=== PATIENT | male | born 1955 | race Caucasian/White ===

== ENCOUNTER 2019-10-21 12:32 | Inpatient (IN) | payer OTHER, MEDICARE ==
[~2019-10-21] VITALS: Ht 188 cm; Wt 98.8 kg
[2019-10-21 13:43] LABS: BASOPHILS ABSOLUTE AUTO 0.05 K/mm3 (0.00-0.23); BASOPHILS PERCENT AUTO 1 % (0-2); EOSINOPHILS ABSOLUTE AUTO 0.18 K/mm3 (0.00-0.68); EOSINOPHILS PERCENT AUTO 2 % (0-6); Hemoglobin 14.9 g/dL (13.5-17.5); IMMATURE GRAN ABSOLUTE AUTO 0.02 K/mm3 (0.00-0.10); IMMATURE GRAN PERCENT AUTO 0 % (0-1); LYMPHOCYTES ABSOLUTE AUTO 2.31 K/mm3 (0.84-5.20); LYMPHOCYTES PERCENT AUTO 28 % (21-46); MONOCYTES ABSOLUTE AUTO 0.74 K/mm3 (0.16-1.47); MONOCYTES PERCENT AUTO 9 % (4-13); Mean Corpuscular HGB 29.8 pg (26.0-34.0); Mean Corpuscular HGB Conc 33.1 g/dL (31.5-36.5); Mean Corpuscular Volume 90 fL (80-100); Mean Platelet Volume 12.2 fL (9.1-12.4); NEUTROPHILS ABSOLUTE AUTO 4.93 K/mm3 (1.96-9.15); NEUTROPHILS PERCENT AUTO 60 % (41-73); Platelet Count 197 K/mm3 (150-400); RDW Coefficient Variation 12.4 % (11.7-14.2); RDW Standard Deviation 40.6 fL (35.1-46.3); White Blood Cell Count 8.23 K/mm3 (4.00-11.30)
[2019-10-21 13:58] LABS: Alanine Aminotransfer (ALT/SGP 43 U/L (12-78); Albumin/Globulin Ratio 1.4 (0.8-1.8); Alk Phos 59 U/L (50-136); Anion Gap 8 mmol/L (6-16); Aspartate Aminotrans (AST/SGOT 29 U/L (12-37); Bilirubin, Total 1.1 mg/dL (0.1-1.0); Blood Urea Nitrogen 23 mg/dL (8-24); Bun/Creatinine Ratio 21.9 (12.0-20.0); CO2, Blood 25 mmol/L (21-32); Calcium, Blood 8.8 mg/dL (8.5-10.1); Chloride, Blood 110 mmol/L (98-108); Creatinine, Blood 1.05 mg/dL (0.60-1.20); Globulin, Blood 2.9 g/dL (2.2-4.0); Glomerular Filtration Rate >60 (60-); Glucose, Blood 204 mg/dL (70-99); Magnesium, Blood 1.8 mg/dL (1.6-2.4); Potassium, Blood 4.1 mmol/L (3.5-5.5); Sodium, Blood 143 mmol/L (136-145); Total Protein, Blood 6.9 g/dL (6.4-8.2); Troponin I <0.015 ng/mL (0.000-0.040)
[2019-10-21] MEDS ORDERED: FUROSEMIDE20 MG PO (14:47)
[2019-10-21] MEDS ORDERED: GLIP5 PO (14:47)
[2019-10-21] MEDS ORDERED: Diltiazem ER120 M2 PO (14:48)
[2019-10-21] MEDS ORDERED: ZESTRIL40 M1 PO (14:48)
[2019-10-21] MEDS ORDERED: ATORVASTATIN CA PO (14:49)
[2019-10-21] MEDS ORDERED: METO50ER PO (14:49)
[2019-10-21] MEDS ORDERED: Metformin HCl1000 MG PO (14:50)
[2019-10-21] MEDS ORDERED: SPIRONOLACTONE25 MG PO (14:50)
[2019-10-21] MEDS ORDERED: XARELTO20 M1 PO (14:51)
[2019-10-21] MEDS ORDERED: BASAGLAR K100 UNIT/2 SC (14:52)
[2019-10-21 16:18] LABS: Prothrombin Time Results 10.7 Sec (9.7-11.5)
--- NOTE | 2019-10-21 18:38 | NUR ---
SHIFT NOTE PT HAS BEEN RESTING WELL IN BED W/O CP OR SOB T/O THE DAY. PT WITH NUMEROUS 3-7 SECOND PAUSES NOTED CONVERTING BETWEEN A-FLUTTER AND NSR. PT REMAINS A-SYMPTOMATIC DURING THERSE EPISODES. 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 PT STS THAT SHE USED TO WORK IN [employer] WHICH IS WHERE SHE DIAGNOSED HERSELF WITH SAID AILMENTS. PT REMAINS IN HEART CENTER AT THE TIME THIS NOTE WRITTEN
--- NOTE | 2019-10-21 22:46 | NUR ---
ASSUMED CARE OF PATIENT AT APPROXIMATELY 1915 FROM CHIQUITA Smiley RN. PATIENT ALERT AND ORIENTED X4. PATIENT DENIES PAIN, NUMBNESS, TINGLING, DIZZINESS OR NAUSEA. PATIENT NEW ADMIT BEFORE SHIFT CHANGE. PATIENT REQUESTED FOOD; TRAY DID NOT COME. AFIB ON TELE WITH A RATE OF 120'S; CARDIZEM GTT; HEPARIN GTT; OXYGEN SATURATION ABOVE 90% ON ROOM AIR; SCD'S PLACED. PATIENT URINATING INTO URINAL BEDSIDE. PATIENT CURRENTLY RESTING IN BED; CALL LIGHT IN REACH; BED IN LOWEST POSISTION; BED ALARM ON; WILL CONTINUE TO MONITOR AND ASSESS UNTIL END OF SHIFT.
--- NOTE | 2019-10-22 05:45 | NUR ---
CARDIZEM GTT WAS TITRATED DOWN TO 5ML/HR AROUND 0200; AFIB AVERAGING HIGH 90'S AND PATIENT HAD 3 SECOND PAUSE; ASYMPTOMATIC. VSS. DR. TOPETE CALLED; ORDERS TO START HOME DOSE OF PO CARDIZEM; CALLED PHARMACIST TO VERIFY. CARDIZEM GTT OFF AT 0400; AVERAGING 100'S ON TELE. HEPARIN ADJUSTED ONCE. WILL CONTINUE TO MONITOR AND ASSESS UNTIL END OF SHIFT.
[2019-10-22 07:56] LABS: BASOPHILS ABSOLUTE AUTO 0.06 K/mm3 (0.00-0.23); BASOPHILS PERCENT AUTO 1 % (0-2); EOSINOPHILS ABSOLUTE AUTO 0.28 K/mm3 (0.00-0.68); EOSINOPHILS PERCENT AUTO 4 % (0-6); Hematocrit 39.8 % (37.0-53.0); Hemoglobin 13.3 g/dL (13.5-17.5); IMMATURE GRAN ABSOLUTE AUTO 0.01 K/mm3 (0.00-0.10); IMMATURE GRAN PERCENT AUTO 0 % (0-1); LYMPHOCYTES ABSOLUTE AUTO 2.27 K/mm3 (0.84-5.20); LYMPHOCYTES PERCENT AUTO 33 % (21-46); MONOCYTES ABSOLUTE AUTO 0.75 K/mm3 (0.16-1.47); MONOCYTES PERCENT AUTO 11 % (4-13); Mean Corpuscular HGB 29.7 pg (26.0-34.0); Mean Corpuscular HGB Conc 33.4 g/dL (31.5-36.5); Mean Corpuscular Volume 89 fL (80-100); Mean Platelet Volume 11.3 fL (9.1-12.4); NEUTROPHILS ABSOLUTE AUTO 3.48 K/mm3 (1.96-9.15); NEUTROPHILS PERCENT AUTO 51 % (41-73); Platelet Count 146 K/mm3 (150-400); RDW Coefficient Variation 12.3 % (11.7-14.2); RDW Standard Deviation 40.1 fL (35.1-46.3); Red Blood Cell Count 4.48 M/mm3 (4.30-5.90); White Blood Cell Count 6.85 K/mm3 (4.00-11.30)
[2019-10-22 08:12] LABS: Anion Gap 6 mmol/L (6-16); Blood Urea Nitrogen 23 mg/dL (8-24); Bun/Creatinine Ratio 21.9 (12.0-20.0); CO2, Blood 25 mmol/L (21-32); Calcium, Blood 8.5 mg/dL (8.5-10.1); Chloride, Blood 112 mmol/L (98-108); Creatinine, Blood 1.05 mg/dL (0.60-1.20); Glomerular Filtration Rate >60 (60-); Glucose, Blood 194 mg/dL (70-99); Potassium, Blood 3.9 mmol/L (3.5-5.5); Sodium, Blood 143 mmol/L (136-145)
--- NOTE | 2019-10-22 18:41 | NUR ---
PT SUMMARY: PT RE-STARTED ON CARDIZEM DRIP CURRENTLY AT 15MG/HR PT'S HR STAYS ON 110-120S, PT DENIES CHEST PAIN. BP SYSTOLIC ON THE 115'S. NO HEADACHE/DIZZINESS/NAUSEA REPORTED. HEPARIN GTT STOPPED PT RESUMED ON XARELTO 20 MG. PT TO CONTINUE ON MEDICAL INTERVENTION FOR AFIB TO CONSULT CARDIOLOGY IF AFIB UNCONTROLLED WITH MEDICATION. PT INDEPENDENT IN THE ROOM, DENIES ANY PAIN FOR THE SHIFT, ABLE TO MAKE NEEDS KNOWN. WILL MONITOR
--- NOTE | 2019-10-22 20:57 | NUR ---
ASSUMED CARE OF PATIENT AT APPROXIMATELY 1910 FROM GUSTAVO Montes De Oca RN. PATIENT ALERT AND ORIENTED X4. PATIENT DENIES PAIN, NUMBNESS, TINGLING, DIZZINESS OR NAUSEA. PATIENT REQUESTED SHOWER AT SHIFT CHANGE; SHOWERED AND LINENS CHANGED. AFIB ON TELE WITH A RATE OF 105-120; CARDIZEM GTT TITRATED DOWN TO 10 W/ RATE AVERAGING 105; OXYGEN SATURATION ABOVE 90% ON ROOM AIR; PATIENT URINATING INTO URINAL BEDSIDE; REPORTS FILLED URINAL THREE TIMES TODAY. PATIENT CURRENTLY RESTING IN BED; CALL LIGHT IN REACH; BED IN LOWEST POSISTION; BED ALARM ON; WILL CONTINUE TO MONITOR AND ASSESS UNTIL END OF SHIFT.
[2019-10-23 04:44] LABS: Anion Gap 5 mmol/L (6-16); Blood Urea Nitrogen 20 mg/dL (8-24); Bun/Creatinine Ratio 18.7 (12.0-20.0); CO2, Blood 26 mmol/L (21-32); Calcium, Blood 8.3 mg/dL (8.5-10.1); Chloride, Blood 110 mmol/L (98-108); Creatinine, Blood 1.07 mg/dL (0.60-1.20); Glomerular Filtration Rate >60 (60-); Glucose, Blood 95 mg/dL (70-99); Potassium, Blood 3.5 mmol/L (3.5-5.5); Sodium, Blood 141 mmol/L (136-145)
--- NOTE | 2019-10-23 06:27 | NUR ---
NO ACUTE CHANGES TO REPORT. PATIENT SLEPT ABOUT EIGHT HOURS LAST NIHGT. VSS. CARDIZEM GTT AT 10ML/HR; TITRATED DOWN TO 5 FOR A SHORT PERIOD WHEN PATIENT HR AVERAGING 80'S. WILL CONTINUE TO MONITOR AND ASSESS UNTIL END OF SHIFT
--- NOTE | 2019-10-23 19:30 | NUR ---
PT SUMMARY: PT FOR POSSIBLE DISCHARGE IN AM IF HR STABILIZES PER PT'S BASELINE. CARDIZEM GTT STOPPED RESTART WITH ORAL AND INCREASED DOSE TO 90 MG TID. IF HR WONT STABILIZE PLAN TO ADD DIGOXIN WITH CARDIZEM IN THE MORNING. STILL CONSIDERING CARDIOLOGY CONSULT AND DOING ABLATION/CARDIOVERSION WITH SINDY POSSIBLY OUTPATIENT. PT WITH NO COMPLAINS FOR THE SHIFT, HAS BEEN IN BED MOST OF THE SHIFT. ABLE TO MAKE NEEDS KNOWN. WILL MONITOR
--- NOTE | 2019-10-23 23:00 | NUR ---
ASSUMED CARE OF PATIENT AT APPROXIMATELY 1915 FROM GUSTAVO Montes De Oca RN. PATIENT ALERT AND ORIENTED X4. PATIENT DENIES PAIN, NUMBNESS, TINGLING, DIZZINESS OR NAUSEA. AFIB ON TELE WITH A RATE OF 110; OXYGEN SATURATION ABOVE 90% ON ROOM AIR; PATIENT REPORTS HE HAS BEEN AMBULATING MORE TODAY AND READY TO GO HOME IN THE MORNING. PATIENT CURRENTLY RESTING IN BED; CALL LIGHT IN REACH; BED IN LOWEST POSISTION; BED ALARM ON; WILL CONTINUE TO MONITOR AND ASSESS UNTIL END OF SHIFT.
--- NOTE | 2019-10-24 00:45 | NUR ---
CALLED TEMITOPE MULLINS REGARDING HEART RATE AFIB 130'S; PROGRESS NOTE FORM 10/22 NOTES DIGOXIN MAY BE STARTED IF RATE NOT CONTROLLED; ORDERS RECIEVED.
--- NOTE | 2019-10-24 06:02 | NUR ---
NO ACUTE CHANGES TO REPORT. VSS. PATIENT SLEPT ABOUT EIGHT HOURS. WILL CONTINUE TO MONITOR AND ASSESS UNTIL END OF SHIFT.
--- NOTE | 2019-10-24 12:09 | NUR ---
PT'S HRR OF THIS TIME RANGING 90'S-110'S PT DENIES ANY PALPITATIONS. THE REST OF THE VITALS STABLE. ORAL CARDIZEM 90MG GIVEN @1155. NO COMPLAINS AT THIS TIME.
--- NOTE | 2019-10-24 17:22 | NUR ---
PT RUNNING STROKES OF PVC/VTACH ON THE HEART MONITOR, CALLED PCP ORDER RECEIVED TO CHECK BMP AND MAGNESIUM LEVEL. HRR REMAINS 90'S-110'S PT DENIES CHEST PAIN THE REST OF THE VITALS NORMAL. PT CURENTLY IN BED, WILL MONITOR
[2019-10-24 18:06] LABS: Anion Gap 7 mmol/L (6-16); Blood Urea Nitrogen 19 mg/dL (8-24); Bun/Creatinine Ratio 17.8 (12.0-20.0); CO2, Blood 24 mmol/L (21-32); Chloride, Blood 109 mmol/L (98-108); Creatinine, Blood 1.07 mg/dL (0.60-1.20); Glomerular Filtration Rate >60 (60-); Glucose, Blood 155 mg/dL (70-99); Magnesium, Blood 2.3 mg/dL (1.6-2.4); Potassium, Blood 4.1 mmol/L (3.5-5.5); Sodium, Blood 140 mmol/L (136-145)
--- NOTE | 2019-10-24 18:36 | NUR ---
PT SUMMARY: PT HAS BEEN RECEIVING DIGOXIN AND CARDIZEM FOR AFIB UNCONTROLLED, PT STILL RANGING 90'S-130'S THROUGHOUT THE SHIFT, HAD STROKES OF PVC/VTACH ON THE MONITOR DR LYONS CONSULTED, LABS ORDERED BMP AND MG CAME BACK WITHIN NORMAL RANGE. PT DENIES ANY CHEST PAIN, BUT HAS OCCASIONAL PALPITATIONS WHEN SLEEPING AND LAYING ON THE SIDE THIS MORNING. PT STILL UNDER OBSERVATION/MONITORING, FOR CARDIOLOGY CONSULT IF MEDICAL INTERVENTION DOES NOT WORK. PT CURRENTLY IN BED INDEPENDENT IN THE ROOM, ABLE TO MAKE NEEDS KNOWN. WILL MONITOR
[2019-10-25 04:36] LABS: Anion Gap 5 mmol/L (6-16); Blood Urea Nitrogen 19 mg/dL (8-24); Bun/Creatinine Ratio 16.5 (12.0-20.0); CO2, Blood 26 mmol/L (21-32); Calcium, Blood 8.5 mg/dL (8.5-10.1); Chloride, Blood 111 mmol/L (98-108); Creatinine, Blood 1.15 mg/dL (0.60-1.20); Glomerular Filtration Rate >60 (60-); Glucose, Blood 138 mg/dL (70-99); Potassium, Blood 3.5 mmol/L (3.5-5.5); Sodium, Blood 142 mmol/L (136-145)
--- NOTE | 2019-10-25 06:16 | NUR ---
SHIFT SUMMARY PATIENT PLEASENT AND COOPERATIVE THROUGHOUT THE NIGHT. HOWEVER, PATIENT EXPRESSING SOME FRUSTRATION THAT HE HAS NOT HAD A NEAR EAST ARCHEOLOGY PROFESSOR SEE HIM. PATIENT APPEARED TO SLEEP WELL THROUGHOUT MOST OF THE NIGHT. PATIENT REMAINS IN AFIB. PATIENT'S HEART RATE IN THE 110'S THROUGHOUT MOST OF THE NIGHT. HOWEVER, PATIENT'S HEART RATE STARTING TO TREND INTO THE 120'S-130'S THIS AM. WILL GIVE ORDERED PO CARDIZEM THIS AM. VITAL SIGNS CHARTED. WILL CONTINUE TO MONITOR PATIENT AND REPORT TO ONCOMING RN.
--- NOTE | 2019-10-25 08:29 | NUR ---
AM NOTE... ASSUMED CARE OF PT APROX 0700. PT IS A&Ox4 AND IND IN THE ROOM. PT IS IN AFIB RVR IN THE 110'S-150'S. L/S CLEAR T/O ON RA. BT PRESENT AND NORMOACTIVE, ABD SOFT AND NONTENDER TO PALP. NO EDEMA NOTED ON ASSESSMENT. PT DENIES CHEST PAIN/PRESSURE N/V OR SOB AT THIS TIME. CALL LIGHT IN REACH WILL CONTINUE TO MONITOR.
[2019-10-25 10:48] LABS: Hematocrit 49.7 % (37.0-53.0); Hemoglobin 16.5 g/dL (13.5-17.5); Mean Corpuscular HGB Conc 33.2 g/dL (31.5-36.5); Mean Corpuscular Volume 88 fL (80-100); Mean Platelet Volume 11.2 fL (9.1-12.4); Platelet Count 194 K/mm3 (150-400); RDW Coefficient Variation 12.2 % (11.7-14.2); RDW Standard Deviation 38.6 fL (35.1-46.3); Red Blood Cell Count 5.68 M/mm3 (4.30-5.90); White Blood Cell Count 9.02 K/mm3 (4.00-11.30)
[2019-10-25 11:17] LABS: Digoxin (Lanoxin) 1.41 ug/mL (0.80-2.00)
[2019-10-25 16:28] LABS: CHOL/HDL RATIO 4.3; Cholesterol 116 mg/dL (50-200); HDL Cholesterol 27 mg/dL (>39); LDL/HDL RATIO 2.6; Low Density Lipoprotein Chol 71 mg/dL (0-110); Triglycerides 92 mg/dL (30-160); Very Low Density Lipoprot Chol 18 mg/dL (6-32)
--- NOTE | 2019-10-25 17:10 | NUR ---
SHIFT SUMMARY... PT HAD SINDY AND CARDIOVERSION TODAY AT 1425, BOTH PROCEDURES WERE SUCCESSFUL AND PT IS MAINTAINING SR W/PACS AND PVCS IN THE 60'S-80'S. PT DENIES ANY SOB, CHEST PAIN/PRESSURE. PT IS ON RA WITH O2 SATS >95%. PT'S VS HAVE REMAINED STABLE T/O SHIFT. CALL LIGHT IN REACH WILL CONTINUE TO MONITOR UNTIL REPORT IS GIVEN TO ONCOMING RN.
[2019-10-26 04:27] LABS: Anion Gap 5 mmol/L (6-16); Blood Urea Nitrogen 24 mg/dL (8-24); Bun/Creatinine Ratio 19.2 (12.0-20.0); CO2, Blood 26 mmol/L (21-32); Calcium, Blood 8.3 mg/dL (8.5-10.1); Chloride, Blood 111 mmol/L (98-108); Creatinine, Blood 1.25 mg/dL (0.60-1.20); Glomerular Filtration Rate >60 (60-); Glucose, Blood 171 mg/dL (70-99); Potassium, Blood 3.8 mmol/L (3.5-5.5); Sodium, Blood 142 mmol/L (136-145)
--- NOTE | 2019-10-26 06:39 | NUR ---
SHIFT SUMMARY NO ACUTE CHANGES NOTED THROUGH THE NIGHT. PT HAS BEEN A&O X4, INDEPENDENT IN THE ROOM, VSS, HE DENIES CP/PRESSURE. SINUS/AFIB W OCCASIONAL PVC'S NOTED THROUGH THE NIGHT. EKG WAS DONE THIS AM AND PLACED ON CHART, NSR NOTED. PT IS TOLERATING PO INTAKE, VOIDING WNL. CALL LIGHT IN REACH, WCTM
[2019-10-26 07:30] LABS: Alanine Aminotransfer (ALT/SGP 26 U/L (12-78); Aspartate Aminotrans (AST/SGOT 15 U/L (12-37)
--- NOTE | 2019-10-26 07:45 | NUR ---
AM NOTE... ASSUMED CARE OF PT APROX 0700.PT IS A&Ox4 AND IND IN THE ROOM. PT IS S/P CARDIOVERSION AND SINDY. PT IS STILL IN SR IN THE 70'S-80'S. PT DENIES CHEST PAIN/PRESSURE N/V OR SOB. PT'S VS STABLE AT THIS TIME. L/S CLEAR T/O DIM IN THE BASES ON RA. BT PRESENT AND NORMOACTIVE, ABD SOFT AND NONTENDER TO PALP. NO EDEMA NOTED ON ASSESSMENT. WILL CONTINUE TO MONITOR.
--- NOTE | 2019-10-26 09:42 | NUR ---
Echocardiogram completed.
[2019-10-26] MEDS ORDERED: DRON400T (13:19)
--- NOTE | 2019-10-26 14:37 | NUR ---
PT D/C HOME... PT D/C HOME WITH ALL OF HIS BELONGINGS. PT'S VS STABLE. PT DENIES CHEST PAIN/PRESSURE N/V OR SOB. PT WAS IN NSR IN THE 70'S. PT WAS TAKEN TO DOOR VIA W/C. PT'S 2 IVS REMOVED WNL. NEW MEDICATION AND DISCHARGE EDUCATION PROVIDED, PT STATED HIS UNDERSTANDING.
== END 2019-10-26 14:35 | disposition home or self-care (01) | DRG 308 ==
LOC: ER 12:32 → PCU 12:33
PROVIDERS: Hospitalist; Internal Medicine Cardiovascular Disease; Physician Assistant; ADMIT Internal Medicine
PROC: B24BZZ4 Ultrasonography of Heart with Aorta, Transesophageal (ICD-10-PCS; principal; 2019-10-25)
DX: I48.0 Paroxysmal atrial fibrillation (principal); I50.31 Acute diastolic (congestive) heart failure; E11.9 Type 2 diabetes mellitus without complications; I42.6 Alcoholic cardiomyopathy; Z87.891 Personal history of nicotine dependence; Z79.84 Long term (current) use of oral hypoglycemic drugs; I11.0 Hypertensive heart disease with heart failure; E78.5 Hyperlipidemia, unspecified; E66.9 Obesity, unspecified; Z68.29 Body mass index [BMI] 29.0-29.9, adult
CPT/HCPCS: 36415; 71046; 80048; 80053; 80061; 80162; 82947; 83735; 83880; 84443; 84450; 84460; 84484; 85025; 85027; 85610; 85730; 93005; 93010; 93306; 93312; 93325; 96365; 96366; 96368; 96375; 96376; 99285-25; A9270-GY; G0378; J1160; J1644; J1940; J2250; J3010; J7030

== ENCOUNTER 2020-07-25 05:54 | Day surgery (SDC) | payer MEDICARE, OTHER ==
[~2020-07-25] VITALS: Ht 188 cm; Wt 105.0 kg
[~2020-07-25 05:54] MED LIST: AMLODIPINE BESYL5 MG PO; ATORVASTATIN CA20 MG PO; BASAGLAR K100 UNIT/8 SC; DRON400T; Diltiazem ER120 M2 PO; FUROSEMIDE20 MG PO; GLIP5 PO; HYDCHL25 PO; METO50ER PO; Metformin HCl1000 MG PO; SPIRONOLACTONE25 MG PO; XARELTO20 M1 PO; ZESTRIL40 M1 PO
[2020-07-25] MEDS ORDERED: JARDIANCE10 MG PO (07:11)
--- NOTE | 2020-07-25 08:46 | NUR ---
DISCHARGE INSTRUCTIONS REVIEWED ALL QUESTIONS ANSWERED.
--- NOTE | 2020-07-25 09:13 | NUR ---
20 G IV DISCONTINED FROM RIGHT HAND WITH INTACT CANNULA. PT DRANK COFFEE WITH NO ASPIRATION. PT ESCORTED OUT VIA WHEELCHAIR ESCORT.
[2020-10-23] MEDS ORDERED: Aspirin EC81 MG PO (11:04)
[2020-10-23] MEDS ORDERED: PLAVIX75 MG PO (11:05)
[2021-01-30] MEDS ORDERED: DRON400T PO (13:38)
[2021-01-30] MEDS ORDERED: XARELTO20 MG PO (13:38)
== END 2020-07-25 09:05 | disposition home or self-care (01) ==
LOC: MHTC 05:54
DX: I48.0 Paroxysmal atrial fibrillation (principal); I11.0 Hypertensive heart disease with heart failure; I50.22 Chronic systolic (congestive) heart failure; G47.33 Obstructive sleep apnea (adult) (pediatric); E11.9 Type 2 diabetes mellitus without complications; E78.5 Hyperlipidemia, unspecified; I31.3 Pericardial effusion (noninflammatory); R04.89 Hemorrhage from other sites in respiratory passages; Q21.1 Atrial septal defect; E66.3 Overweight; Z68.29 Body mass index [BMI] 29.0-29.9, adult; Z87.891 Personal history of nicotine dependence; Z79.899 Other long term (current) drug therapy
CPT/HCPCS: 93312; 93325; A9270; J2250; J3010; J7030

== ENCOUNTER 2020-10-23 09:02 | Day surgery (SDC) | payer MEDICARE, OTHER ==
[~2020-10-23] VITALS: Ht 188 cm; Wt 105.0 kg
== END 2020-10-23 22:41 | disposition home or self-care (01) ==
LOC: MHTC 09:02
DX: I48.0 Paroxysmal atrial fibrillation (principal); I08.1 Rheumatic disorders of both mitral and tricuspid valves; I70.0 Atherosclerosis of aorta; Z95.818 Presence of other cardiac implants and grafts; I11.0 Hypertensive heart disease with heart failure; I50.22 Chronic systolic (congestive) heart failure; I31.3 Pericardial effusion (noninflammatory); I47.2 Ventricular tachycardia; Q21.1 Atrial septal defect; E11.9 Type 2 diabetes mellitus without complications; E78.5 Hyperlipidemia, unspecified; E66.3 Overweight
CPT/HCPCS: 93312; 93325; 99152; 99153; A9270; J2250; J3010; J7030

== ENCOUNTER 2021-01-30 10:27 | Emergency (ER) | payer MEDICARE, OTHER | END 2021-01-30 14:06 | disposition home or self-care (01) | LOC: ER 10:27 | DX: I48.91 Unspecified atrial fibrillation (principal); I10 Essential (primary) hypertension; E11.9 Type 2 diabetes mellitus without complications; Z79.899 Other long term (current) drug therapy ==

== ENCOUNTER 2021-07-12 08:22 | Emergency (ER) | payer MEDICARE, OTHER ==
[~2021-07-12] VITALS: Ht 188 cm; Wt 99.8 kg
[~2021-07-12 08:22] MED LIST changes: +Aspirin EC81 MG PO; +DRON400T PO; +JARDIANCE10 MG PO; +PLAVIX75 MG PO; +XARELTO20 MG PO
[2021-07-12 09:11] LABS: BASOPHILS PERCENT AUTO 1 % (0-2); EOSINOPHILS ABSOLUTE AUTO 0.35 K/mm3 (0.00-0.68); EOSINOPHILS PERCENT AUTO 4 % (0-6); Hematocrit 47.3 % (37.0-53.0); Hemoglobin 16.8 g/dL (13.5-17.5); IMMATURE GRAN ABSOLUTE AUTO 0.01 K/mm3 (0.00-0.10); IMMATURE GRAN PERCENT AUTO 0 % (0-1); LYMPHOCYTES ABSOLUTE AUTO 2.68 K/mm3 (0.84-5.20); LYMPHOCYTES PERCENT AUTO 32 % (21-46); MONOCYTES ABSOLUTE AUTO 0.77 K/mm3 (0.16-1.47); MONOCYTES PERCENT AUTO 9 % (4-13); Mean Corpuscular HGB 30.3 pg (26.0-34.0); Mean Corpuscular HGB Conc 35.5 g/dL (31.5-36.5); Mean Corpuscular Volume 85 fL (80-100); Mean Platelet Volume 10.7 fL (9.1-12.4); NEUTROPHILS ABSOLUTE AUTO 4.58 K/mm3 (1.96-9.15); NEUTROPHILS PERCENT AUTO 54 % (41-73); Platelet Count 245 K/mm3 (150-400); RDW Coefficient Variation 12.5 % (11.7-14.2); RDW Standard Deviation 38.6 fL (35.1-46.3); Red Blood Cell Count 5.54 M/mm3 (4.30-5.90); White Blood Cell Count 8.49 K/mm3 (4.00-11.30)
[2021-07-12 09:21] LABS: Alanine Aminotransfer (ALT/SGP 25 U/L (12-78); Albumin, Blood 3.4 g/dL (3.4-5.0); Albumin/Globulin Ratio 0.9 (0.8-1.8); Alk Phos 61 U/L (50-136); Anion Gap 5 mmol/L (6-16); Aspartate Aminotrans (AST/SGOT 13 U/L (12-37); Bilirubin, Total 0.9 mg/dL (0.1-1.0); Blood Urea Nitrogen 20 mg/dL (8-24); Bun/Creatinine Ratio 17.5 (12.0-20.0); CO2, Blood 22 mmol/L (21-32); Calcium, Blood 8.9 mg/dL (8.5-10.1); Chloride, Blood 112 mmol/L (98-108); Creatinine, Blood 1.14 mg/dL (0.60-1.20); Globulin, Blood 3.7 g/dL (2.2-4.0); Glomerular Filtration Rate >60 (60-); Glucose, Blood 139 mg/dL (70-99); Potassium, Blood 3.4 mmol/L (3.5-5.5); Sodium, Blood 139 mmol/L (136-145); Total Protein, Blood 7.1 g/dL (6.4-8.2)
== END 2021-07-12 11:44 | disposition home or self-care (01) ==
LOC: ER 08:22
PROVIDERS: Emergency Medicine
DX: I48.92 Unspecified atrial flutter (principal); I48.20 Chronic atrial fibrillation, unspecified; I10 Essential (primary) hypertension; Z79.899 Other long term (current) drug therapy; Z79.4 Long term (current) use of insulin; Z79.02 Long term (current) use of antithrombotics/antiplatelets; Z79.82 Long term (current) use of aspirin
CPT/HCPCS: 80053; 85025; 92960; 93005; 93010; 99152; 99284-25; J2704; J7030

== ENCOUNTER 2021-10-09 08:02 | Day surgery (SDC) | payer MEDICARE, OTHER ==
[~2021-10-09] VITALS: Ht 188 cm; Wt 106.8 kg
[~2021-10-09 08:02] MED LIST changes: +ATOR40TA PO; -ATORVASTATIN CA20 MG PO
--- NOTE | 2021-10-09 09:21 | NUR ---
PT ALERT AND TALKNG WITH STAFF. VS STABLE.
--- NOTE | 2021-10-09 09:25 | NUR ---
PTM TALKED WITH ABOUT DISCHARGE TIME. DISCHARGE INSTRUCTIONS REVIEWED WITH PT, VERBALIZES UNDERSTANDING. WILL CONTINUE TO MONITOR PT AT THIS TIME.
--- NOTE | 2021-10-09 10:00 | NUR ---
SALINE LOCK REMOVED WITH CATHETER INTACT. PT UP AND DRESSED, STABLE ON FEET. PT TO PRIVATE VEHICLE PER W/C WITH ONE STAFF.
[2022-02-11] MEDS ORDERED: METO50ER PO (11:22)
== END 2021-10-09 22:51 | disposition home or self-care (01) ==
LOC: MHTC 08:02
DX: I48.0 Paroxysmal atrial fibrillation (principal); G47.33 Obstructive sleep apnea (adult) (pediatric); I11.0 Hypertensive heart disease with heart failure; I50.22 Chronic systolic (congestive) heart failure; I31.3 Pericardial effusion (noninflammatory); E78.5 Hyperlipidemia, unspecified; E11.9 Type 2 diabetes mellitus without complications; E66.9 Obesity, unspecified; Q21.1 Atrial septal defect; Z95.818 Presence of other cardiac implants and grafts
CPT/HCPCS: 93312; 93325; A9270; J2704; J7030

== ENCOUNTER 2021-12-04 10:19 | Day surgery (SDC) | payer MEDICARE, OTHER ==
[~2021-12-04] VITALS: Ht 182.9 cm; Wt 106.0 kg
[~2021-12-04 10:19] MED LIST changes: -ATOR40TA PO; +ATORVASTATIN CA20 MG PO
[2021-12-04] MEDS ORDERED: DRON400T (11:47)
--- NOTE | 2021-12-04 11:58 | NUR ---
PT WAKING UP AND TALKING WITH STAFF. NSR ON MONITOR.
--- NOTE | 2021-12-04 12:05 | NUR ---
DISCHARGE GONE OVER WITH PT, VERBALIZES UNDERSTANDING. SALINE LOCK REMOVED WITH CATHETER INTACT. PT TO PRIVATE VEHICLE PER W/C WITH ONE STAFF.
== END 2021-12-04 22:53 | disposition home or self-care (01) ==
LOC: ORD 10:19 → MHTC 10:19 → ORSCMMR 10:20 → ORD 11:00
DX: I48.92 Unspecified atrial flutter (principal)
CPT/HCPCS: 92960; 93005; J7030

== ENCOUNTER 2022-01-01 10:19 | Day surgery (SDC) | payer MEDICARE, OTHER ==
[~2022-01-01] VITALS: Ht 182.9 cm; Wt 104.1 kg
== END 2022-01-01 22:40 | disposition home or self-care (01) ==
LOC: MHTC 10:19 → ORD 12:00 → ORSCSDS 12:00 → MHTC 22:40
DX: I48.92 Unspecified atrial flutter (principal); I48.91 Unspecified atrial fibrillation; I11.0 Hypertensive heart disease with heart failure; I50.22 Chronic systolic (congestive) heart failure; G47.33 Obstructive sleep apnea (adult) (pediatric); I71.2 Thoracic aortic aneurysm, without rupture; Q21.1 Atrial septal defect; E11.9 Type 2 diabetes mellitus without complications; E78.5 Hyperlipidemia, unspecified; Z87.891 Personal history of nicotine dependence; Z79.82 Long term (current) use of aspirin; Z79.899 Other long term (current) drug therapy
CPT/HCPCS: 92960; 93005; 93010; J2704; J7030

== ENCOUNTER 2022-07-25 08:39 | Emergency (ER) | payer MEDICARE, OTHER ==
[~2022-07-25] VITALS: Ht 188 cm; Wt 95.2 kg
[~2022-07-25 08:39] MED LIST changes: +ATOR40TA PO; -ATORVASTATIN CA20 MG PO
[2022-07-25] MEDS ORDERED: DOFETILIDE PO (09:53)
[2022-07-25] MEDS ORDERED: BASAGLAR K100 UNIT/3 SC (09:53)
== END 2022-07-25 11:19 | disposition home or self-care (01) ==
LOC: ER 08:39
DX: I48.92 Unspecified atrial flutter (principal); E11.9 Type 2 diabetes mellitus without complications; I10 Essential (primary) hypertension; Z79.4 Long term (current) use of insulin; Z79.82 Long term (current) use of aspirin
CPT/HCPCS: 36415; 93005; 93010; J2704; J3010; J7030

== ENCOUNTER 2022-07-31 17:47 | Emergency (ER) | payer MEDICARE, OTHER ==
[~2022-07-31] VITALS: Ht 188 cm; Wt 106.6 kg
[~2022-07-31 17:47] MED LIST changes: +BASAGLAR K100 UNIT/3 SC; +DOFETILIDE PO
[2022-07-31 19:36] LABS: BASOPHILS ABSOLUTE AUTO 0.09 K/mm3 (0.00-0.23); BASOPHILS PERCENT AUTO 1 % (0-2); EOSINOPHILS ABSOLUTE AUTO 0.17 K/mm3 (0.00-0.68); EOSINOPHILS PERCENT AUTO 2 % (0-6); Hematocrit 49.7 % (37.0-53.0); Hemoglobin 17.5 g/dL (13.5-17.5); IMMATURE GRAN ABSOLUTE AUTO 0.04 K/mm3 (0.00-0.10); IMMATURE GRAN PERCENT AUTO 0 % (0-1); LYMPHOCYTES ABSOLUTE AUTO 1.77 K/mm3 (0.84-5.20); LYMPHOCYTES PERCENT AUTO 16 % (21-46); MONOCYTES ABSOLUTE AUTO 0.83 K/mm3 (0.16-1.47); MONOCYTES PERCENT AUTO 8 % (4-13); Mean Corpuscular HGB Conc 35.2 g/dL (31.5-36.5); Mean Corpuscular Volume 85 fL (80-100); Mean Platelet Volume 11.2 fL (9.1-12.4); NEUTROPHILS ABSOLUTE AUTO 7.93 K/mm3 (1.96-9.15); NEUTROPHILS PERCENT AUTO 73 % (41-73); Platelet Count 193 K/mm3 (150-400); RDW Coefficient Variation 12.4 % (11.7-14.2); RDW Standard Deviation 37.6 fL (35.1-46.3); Red Blood Cell Count 5.84 M/mm3 (4.30-5.90); White Blood Cell Count 10.83 K/mm3 (4.00-11.30)
[2022-07-31 19:54] LABS: Albumin, Blood 4.2 g/dL (3.4-5.0); Albumin/Globulin Ratio 1.4 (0.8-1.8); Bilirubin, Total 0.9 mg/dL (0.1-1.0); Bun/Creatinine Ratio 20.1 (12.0-20.0); Calcium, Blood 9.5 mg/dL (8.5-10.1); Globulin, Blood 3.1 g/dL (2.2-4.0); Potassium, Blood 3.8 mmol/L (3.5-5.5); Total Protein, Blood 7.3 g/dL (6.4-8.2)
== END 2022-07-31 20:12 | disposition home or self-care (01) ==
LOC: ER 17:47
PROVIDERS: Emergency Medicine
DX: R00.0 Tachycardia, unspecified (principal); R00.2 Palpitations; I10 Essential (primary) hypertension; E11.9 Type 2 diabetes mellitus without complications; Z79.4 Long term (current) use of insulin; Z79.82 Long term (current) use of aspirin
CPT/HCPCS: 80053; 84484; 85025

== ENCOUNTER 2022-08-19 10:28 | Emergency (ER) | payer MEDICARE, OTHER ==
[~2022-08-19] VITALS: Ht 188 cm; Wt 106.6 kg
[2022-08-19 11:11] LABS: BASOPHILS ABSOLUTE AUTO 0.05 K/mm3 (0.00-0.23); BASOPHILS PERCENT AUTO 1 % (0-2); EOSINOPHILS ABSOLUTE AUTO 0.36 K/mm3 (0.00-0.68); EOSINOPHILS PERCENT AUTO 5 % (0-6); Hematocrit 50.4 % (37.0-53.0); IMMATURE GRAN ABSOLUTE AUTO 0.02 K/mm3 (0.00-0.10); IMMATURE GRAN PERCENT AUTO 0 % (0-1); LYMPHOCYTES ABSOLUTE AUTO 2.33 K/mm3 (0.84-5.20); LYMPHOCYTES PERCENT AUTO 30 % (21-46); MONOCYTES ABSOLUTE AUTO 0.86 K/mm3 (0.16-1.47); MONOCYTES PERCENT AUTO 11 % (4-13); Mean Corpuscular HGB Conc 35.7 g/dL (31.5-36.5); Mean Corpuscular Volume 84 fL (80-100); Mean Platelet Volume 10.6 fL (9.1-12.4); NEUTROPHILS ABSOLUTE AUTO 4.24 K/mm3 (1.96-9.15); NEUTROPHILS PERCENT AUTO 54 % (41-73); Platelet Count 174 K/mm3 (150-400); RDW Coefficient Variation 12.2 % (11.7-14.2); RDW Standard Deviation 36.7 fL (35.1-46.3); White Blood Cell Count 7.86 K/mm3 (4.00-11.30)
[2022-08-19 11:34] LABS: Albumin, Blood 3.7 g/dL (3.4-5.0); Albumin/Globulin Ratio 1.1 (0.8-1.8); Bilirubin, Total 0.9 mg/dL (0.1-1.0); Bun/Creatinine Ratio 22.6 (12.0-20.0); Creatinine, Blood 0.89 mg/dL (0.60-1.20); Globulin, Blood 3.4 g/dL (2.2-4.0); Potassium, Blood 3.9 mmol/L (3.5-5.5); Total Protein, Blood 7.1 g/dL (6.4-8.2)
== END 2022-08-19 13:38 | disposition home or self-care (01) ==
LOC: ER 10:28
PROVIDERS: Emergency Medicine
DX: I48.92 Unspecified atrial flutter (principal); I10 Essential (primary) hypertension; E11.9 Type 2 diabetes mellitus without complications; Z79.899 Other long term (current) drug therapy; Z79.82 Long term (current) use of aspirin
CPT/HCPCS: 36415; 80053; 83735; 84484; 85025; J3475; J7030

== ENCOUNTER 2022-10-05 11:43 | Emergency (ER) | payer MEDICARE, OTHER ==
[~2022-10-05] VITALS: Ht 188 cm; Wt 104.3 kg
[2022-10-05 12:34] LABS: Bun/Creatinine Ratio 18.9 (12.0-20.0); Calcium, Blood 8.4 mg/dL (8.5-10.1); Creatinine, Blood 0.95 mg/dL (0.60-1.20); Magnesium, Blood 2.2 mg/dL (1.6-2.4); Potassium, Blood 3.9 mmol/L (3.5-5.5)
== END 2022-10-05 14:30 ==
LOC: ER 11:43
PROVIDERS: Student in an Organized Health Care Education/Training Program
DX: I48.92 Unspecified atrial flutter (principal); E11.9 Type 2 diabetes mellitus without complications; I10 Essential (primary) hypertension; Z79.4 Long term (current) use of insulin; Z79.82 Long term (current) use of aspirin; Z79.899 Other long term (current) drug therapy
CPT/HCPCS: 36415; 80048; 83735; 93005; 93010; J3475; J7030

== ENCOUNTER 2023-11-18 07:05 | Observation (INO) | payer MEDICARE, OTHER ==
[~2023-11-18] VITALS: Ht 188 cm; Wt 104.3 kg
[2023-11-18] VITALS (8 sets, daily range): BP systolic 129–149; BP diastolic 84–110
[~2023-11-18 07:05] MED LIST changes: +DILTIAZEM 24HR240 M4 PO; +DOXY100 PO
[2023-11-18] MEDS ORDERED: METO100ER PO (07:39)
[2023-11-18] MEDS ORDERED: Magnesium Sulf 2 GM/Water 50ML 50 ML IV ONE (07:50)
[2023-11-18 08:04] LABS: Albumin/Globulin Ratio 1.2 (0.8-1.8); Bun/Creatinine Ratio 16.8 (12.0-20.0); Calcium, Blood 8.8 mg/dL (8.5-10.1); Creatinine, Blood 1.01 mg/dL (0.60-1.20); Globulin, Blood 3.2 g/dL (2.2-4.0); Potassium, Blood 3.9 mmol/L (3.5-5.5); Total Protein, Blood 7.2 g/dL (6.4-8.2)
[2023-11-18 08:15] LABS: BASOPHILS PERCENT AUTO 1 % (0-2); EOSINOPHILS ABSOLUTE AUTO 0.35 K/mm3 (0.00-0.68); EOSINOPHILS PERCENT AUTO 4 % (0-6); Hematocrit 53.6 % (37.0-53.0); Hemoglobin 18.5 g/dL (13.5-17.5); IMMATURE GRAN ABSOLUTE AUTO 0.02 K/mm3 (0.00-0.10); IMMATURE GRAN PERCENT AUTO 0 % (0-1); LYMPHOCYTES ABSOLUTE AUTO 3.05 K/mm3 (0.84-5.20); LYMPHOCYTES PERCENT AUTO 30 % (21-46); MONOCYTES ABSOLUTE AUTO 0.98 K/mm3 (0.16-1.47); MONOCYTES PERCENT AUTO 10 % (4-13); Mean Corpuscular HGB 29.6 pg (26.0-34.0); Mean Corpuscular HGB Conc 34.5 g/dL (31.5-36.5); Mean Corpuscular Volume 86 fL (80-100); NEUTROPHILS ABSOLUTE AUTO 5.56 K/mm3 (1.96-9.15); NEUTROPHILS PERCENT AUTO 55 % (41-73); Platelet Count 193 K/mm3 (150-400); RDW Coefficient Variation 12.8 % (11.7-14.2); RDW Standard Deviation 39.5 fL (35.1-46.3); Red Blood Cell Count 6.24 M/mm3 (4.30-5.90); White Blood Cell Count 10.06 K/mm3 (4.00-11.30)
[2023-11-18] MEDS ORDERED: Metoprolol Tartrate 1 MG/ML 5 ML VIAL IV PRN (08:40)
[2023-11-18] MEDS ORDERED: METOPROLOL TAR PO (08:50)
[2023-11-18] MEDS ORDERED: Metoprolol Tartrate 1 MG/ML 5 ML VIAL IV ONE (09:00)
[2023-11-18] MEDS ORDERED: Diltiazem HCl 5 MG / ML 5ML Vial IV ONE (10:00)
[2023-11-18] MEDS ORDERED: dilTIAZem HCL 125 MG in Dextrose 5% 100 ML IV SCH (10:55)
[2023-11-18] MEDS ORDERED: Acetaminophen 325 MG TABLET PO PRN (12:15)
--- NOTE | 2023-11-18 15:00 | NUR ---
ARRIVAL PT ARRIVED TO PCU 14 FROM THE ER AT APPROXIMATELY 1451. PT WAS ABLE TO STAND AND TRANSFER INDEPENDENTLY TO BED. A&O X4, CALLS APPROPRIATELY. IV TO R AC PATENT, CARDIZEM DRIP RUNNING. HR CONTROLLED 80'S-110'S, BP STABLE. PT REPORTS HAVING A PACEMAKER PLACED 10/2022. RHYTHM AFIB WITH PVCS. PT DENIES CP OR SOB. COMPLETED ADMISSION HISTORY. PT HAS C/O LEFT SHOULDER PAIN BUT STATES THAT HE HAS BURSITIS AND HAS PAIN AT BASELINE, MEDICATED PER EMR. PT IS NOW RESTING COMFORTABLY IN BED, CALL LIGHT WITHIN REACH, BREATHING EVEN AND UNLABORED.
[2023-11-18] MEDS ORDERED: Aspirin 81 MG TabEC PO SCH (16:00)
[2023-11-18] MEDS ORDERED: Insulin Glargine-Yfgn 100 Unit/mL 3 ML SYR SC SCH (21:00)
[2023-11-18] MEDS ORDERED: Atorvastatin 40 MG Tab PO SCH (21:00)
[2023-11-18] MEDS ORDERED: Sotalol HCl 80 MG Tab PO SCH (21:00)
[2023-11-19 03:42] VITALS: BP 134/67
--- NOTE | 2023-11-19 05:34 | NUR ---
ASSUMED CARE OF PT AT 1900. PT ALERT AND ORIENTED x4, DENIES PAIN. CALL LIGHT APPROPRIATE. PT PACED, SR WITH FREQUENT ECTOPY NOTED, INCLUDING PVC'S AND BIGEMINY. PT WAS GOING TO START SOTALOL THIS EVENING AT 2100, HOWEVER, PT'S BASELINE EKG SHOWED PROLONGED QT. SOTALOL WAS HELD PER . DILTIAZEM TITRATED OFF OVERNIGHT PT HR STABLE 70'S - 80'S. PT REFUSED HIS INSULIN GLARGINE OVERNIGHT WELL.
[2023-11-19 07:22] VITALS: BP 167/97
[2023-11-19] MEDS ORDERED: dilTIAZem HCL 120 MG CAP.CD PO SCH (09:00)
[2023-11-19] MEDS ORDERED: Enoxaparin 40 MG/0.4 ML SYR SC SCH (09:00)
[2023-11-19] MEDS ORDERED: Empagliflozin 10 MG TAB PO SCH (09:00)
[2023-11-19] MEDS ORDERED: Lisinopril 20 MG Tab PO SCH (09:00)
--- NOTE | 2023-11-19 09:48 | NUR ---
ASSUMPTION OF CARE ASSUMED CARE AT APPROX 0715. PATIENT ALERT, SITTING UP IN BED DURING INITIAL ENCOUNTER. ALERT AND ORIENTED X4. COMMUNICATES NEEDS EFFECTIVELY. RECEPTIVE TO EDUCATION, ASKS QUESTIONS. TELEMETRY SHOWING PACED 70s. CARDIZEM GTT OFF SINCE 329, PER NOC RN. MD PANIAGUA TO BEDSIDE THIS MORNING. PLAN TO START PO CARDIZEM FOR RATE MANAGEMENT. MD TO DISCUSS CASE WITH PATIENT's HAND FOLDER. BP ELEVATED THIS MORNING, SBP 160s. HX OF HTN, PO LISINOPRIL ADMINISTERED PER EMAR. DENIES CHEST PAIN, PRESSURE. ON ROOM AIR, SATs >90%. DENIES SHORTNESS OF BREATH. PATIENT IS INDEPENDENT IN ROOM, WITH ALL ADLs. CALL LIGHT IN REACH.
[2023-11-19 11:20] VITALS: BP 148/95
[2023-11-19] MEDS ORDERED: dilTIAZem HCL 30 MG TAB PO SCH (11:30)
--- NOTE | 2023-11-19 13:14 | NUR ---
MD PANIAGUA TO BEDSIDE AFTER DISCUSSING CASE WITH PATIENT's WOOD EXPERIMENTAL MECHANIC. WOOD EXPERIMENTAL MECHANIC IS AWARE OF THE PROLONGED QTC AND WANTS TO START SOTALOL PRIOR TO DISCHARGE. WOOD EXPERIMENTAL MECHANIC OR MD PANIAGUA ARE NOT CONCERNED DUE TO THE PATIENT's PACEMAKER. RECEIVED VERBAL THAT EKG IS NOT NEEDED PRIOR TO ADMINISTRATION OR 2 HOURS FOLLOWING. WILL ADMINISER SOTALOL PER EMAR. PATIENT IS TO TAKE A 5 DAY SUPPLY OF CARDIZEM AND THEN FOLLOW UP WITH WOOD EXPERIMENTAL MECHANIC AT DISCHARGE FOR FURTHER MANAGEMENT.
[2023-11-19 13:22] VITALS: BP 149/85
--- NOTE | 2023-11-19 13:42 | NUR ---
REPORT GIVEN TO HANNAH RN TO ASSUME CARE AT 1400.
[2023-11-19] MEDS ORDERED: Sotalol HCl 80 MG Tab PO SCH (14:00)
[2023-11-19] MEDS ORDERED: DILT120 PO (14:19)
[2023-11-19] MEDS ORDERED: SOTO80 PO (14:19)
--- NOTE | 2023-11-19 15:12 | NUR ---
DISCHARGE NOTE: PT EDUCATED ON MEDICATIONS AND FOLLOW UP WITH PCP AND TILE EDGER. PT STATES UNDERSTANDING. IV REMOVED, PT ESCORTED OUT BY CHOPPER GUN OPERATOR VIA WHEELCHAIR. NO QUESTIONS OR CONCERNS AT TIME OF DISCHARGE.
== END 2023-11-19 15:22 | disposition home or self-care (01) ==
LOC: ER 07:05 → PCU 07:06
PROVIDERS: Emergency Medicine; ADMIT Internal Medicine
DX: I48.91 Unspecified atrial fibrillation (principal); I11.0 Hypertensive heart disease with heart failure; I50.20 Unspecified systolic (congestive) heart failure; E11.9 Type 2 diabetes mellitus without complications; F17.220 Nicotine dependence, chewing tobacco, uncomplicated; Z79.01 Long term (current) use of anticoagulants; Z79.82 Long term (current) use of aspirin; Z79.84 Long term (current) use of oral hypoglycemic drugs; Z79.4 Long term (current) use of insulin; Z79.899 Other long term (current) drug therapy
CPT/HCPCS: 80053; 82947; 84484; 85025; 93005; 93010; 96365; 96366; 96367; 96375; 96376; 99285-25; A9270; G0378; J1650; J1815; J3475

== ENCOUNTER 2024-02-08 20:27 | Emergency (ER) | payer MEDICARE, OTHER ==
[~2024-02-08] VITALS: Ht 180.3 cm; Wt 95.2 kg
[~2024-02-08 20:27] MED LIST changes: +DILT120 PO; +METO100ER PO; +METOPROLOL TAR PO; +SOTO80 PO
[2024-02-08 21:18] LABS: BASOPHILS ABSOLUTE AUTO 0.06 K/mm3 (0.00-0.23); BASOPHILS PERCENT AUTO 1 % (0-2); EOSINOPHILS ABSOLUTE AUTO 0.29 K/mm3 (0.00-0.68); EOSINOPHILS PERCENT AUTO 4 % (0-6); Hematocrit 52.7 % (37.0-53.0); Hemoglobin 18.7 g/dL (13.5-17.5); IMMATURE GRAN ABSOLUTE AUTO 0.02 K/mm3 (0.00-0.10); IMMATURE GRAN PERCENT AUTO 0 % (0-1); LYMPHOCYTES ABSOLUTE AUTO 2.69 K/mm3 (0.84-5.20); LYMPHOCYTES PERCENT AUTO 34 % (21-46); MONOCYTES ABSOLUTE AUTO 0.69 K/mm3 (0.16-1.47); MONOCYTES PERCENT AUTO 9 % (4-13); Mean Corpuscular HGB 30.3 pg (26.0-34.0); Mean Corpuscular HGB Conc 35.5 g/dL (31.5-36.5); Mean Corpuscular Volume 85 fL (80-100); Mean Platelet Volume 10.9 fL (9.1-12.4); NEUTROPHILS ABSOLUTE AUTO 4.13 K/mm3 (1.96-9.15); NEUTROPHILS PERCENT AUTO 52 % (41-73); Platelet Count 178 K/mm3 (150-400); RDW Coefficient Variation 12.7 % (11.7-14.2); RDW Standard Deviation 39.1 fL (35.1-46.3); Red Blood Cell Count 6.18 M/mm3 (4.30-5.90); White Blood Cell Count 7.88 K/mm3 (4.00-11.30)
[2024-02-08] MEDS ORDERED: BASAGLAR K100 UNIT/1 SC (21:34)
[2024-02-08] MEDS ORDERED: HUMALOG KW100 UNIT/1 SC (21:35)
[2024-02-08 21:44] LABS: Albumin, Blood 4.4 g/dL (3.4-5.0); Albumin/Globulin Ratio 1.3 (0.8-1.8); Bilirubin, Total 1.2 mg/dL (0.1-1.0); Calcium, Blood 8.7 mg/dL (8.5-10.1); Creatinine, Blood 1.33 mg/dL (0.60-1.20); Globulin, Blood 3.5 g/dL (2.2-4.0); Potassium, Blood 4.2 mmol/L (3.5-5.5); Total Protein, Blood 7.9 g/dL (6.4-8.2)
[2024-02-08 23:00] VITALS: BP 168/101
== END 2024-02-08 23:10 | disposition home or self-care (01) ==
LOC: ER 20:27
PROVIDERS: Physician Assistant
DX: I48.91 Unspecified atrial fibrillation (principal); E86.0 Dehydration; I10 Essential (primary) hypertension; E11.9 Type 2 diabetes mellitus without complications; Z79.4 Long term (current) use of insulin; Z79.82 Long term (current) use of aspirin; Z79.899 Other long term (current) drug therapy
CPT/HCPCS: 80053; 85025

== ENCOUNTER 2024-06-14 12:52 | Inpatient (IN) | payer MEDICARE, OTHER ==
[~2024-06-14] VITALS: Ht 188 cm; Wt 100.6 kg
[~2024-06-14 12:52] MED LIST changes: +BASAGLAR K100 UNIT/1 SC; +HUMALOG KW100 UNIT/1 SC
[2024-06-14 13:39] LABS: BASOPHILS ABSOLUTE AUTO 0.07 K/mm3 (0.00-0.23); BASOPHILS PERCENT AUTO 1 % (0-2); EOSINOPHILS ABSOLUTE AUTO 0.22 K/mm3 (0.00-0.68); EOSINOPHILS PERCENT AUTO 3 % (0-6); Hematocrit 53.5 % (37.0-53.0); Hemoglobin 18.9 g/dL (13.5-17.5); IMMATURE GRAN ABSOLUTE AUTO 0.02 K/mm3 (0.00-0.10); IMMATURE GRAN PERCENT AUTO 0 % (0-1); LYMPHOCYTES ABSOLUTE AUTO 2.26 K/mm3 (0.84-5.20); LYMPHOCYTES PERCENT AUTO 29 % (21-46); MONOCYTES ABSOLUTE AUTO 0.68 K/mm3 (0.16-1.47); MONOCYTES PERCENT AUTO 9 % (4-13); Mean Corpuscular HGB 30.5 pg (26.0-34.0); Mean Corpuscular HGB Conc 35.3 g/dL (31.5-36.5); Mean Corpuscular Volume 86 fL (80-100); NEUTROPHILS ABSOLUTE AUTO 4.48 K/mm3 (1.96-9.15); NEUTROPHILS PERCENT AUTO 58 % (41-73); Platelet Count 194 K/mm3 (150-400); RDW Coefficient Variation 12.4 % (11.7-14.2); RDW Standard Deviation 38.7 fL (35.1-46.3); White Blood Cell Count 7.73 K/mm3 (4.00-11.30)
[2024-06-14 13:51] LABS: Albumin, Blood 3.9 g/dL (3.4-5.0); Albumin/Globulin Ratio 1.2 (0.8-1.8); Bilirubin, Total 1.3 mg/dL (0.1-1.0); Bun/Creatinine Ratio 15.1 (12.0-20.0); Calcium, Blood 8.7 mg/dL (8.5-10.1); Creatinine, Blood 1.06 mg/dL (0.60-1.20); Globulin, Blood 3.3 g/dL (2.2-4.0); Total Protein, Blood 7.2 g/dL (6.4-8.2)
[2024-06-14] MEDS ORDERED: Diltiazem HCl 5 MG / ML 5ML Vial IV ONE (14:05)
[2024-06-14 14:34] LABS: Free Thyroxine 1.38 ng/dL (0.70-1.60); Magnesium, Blood 2.3 mg/dL (1.6-2.4); Thyroid Stimulating Hormone 1.56 uIU/mL (0.360-4.800)
[2024-06-14] MEDS ORDERED: Metoprolol Tartrate 1 MG/ML 5 ML VIAL IV ONE (15:35)
[2024-06-14] MEDS ORDERED: dilTIAZem HCL 100 MG in NS 100 ML IV SCH (15:55)
[2024-06-14] MEDS ORDERED: FLU VACC TS2024-25(6MOS UP)/PF 45 MCG/0.5 ML SYRINGE IM SCH (17:00)
[2024-06-14] MEDS ORDERED: Metoprolol Tartrate 1 MG/ML 5 ML VIAL IV PRN (17:10)
[2024-06-14] MEDS ORDERED: FUROSEMIDE20 MG PO (18:06)
[2024-06-14] MEDS ORDERED: HUMULIN R500 UNIT/1 SC (18:09)
[2024-06-14 18:42] VITALS: BP 148/113
--- NOTE | 2024-06-14 18:46 | NUR ---
ARRIVAL TO PCU/SHIFT SUMMARY patient arrived to pcu at 1815 from er and transfered from er [facility] to pcu bed independently. vital signs stable. tele afib 115, cardizem at 10mg/hr. spo2 >90% on room air. patient is alert and oriented x4. neuro is intact. patient is able to make needs known and uses call light appropriately. patient reports neuropathy in lower extremities. lung sounds clear throughout. denies chest pain/pressure, pain, or shortness of breath. gi/gu within normal limits, and patient is contient and can voids without issues. skin is clean dry and intact. see admit shift assessment for further detials. admit is complete. med rec is complete.
--- NOTE | 2024-06-14 18:56 | NUR ---
update patient convereted to av paced at 185. this rn called md jain. barahona on standby.
[2024-06-14] MEDS ORDERED: Lisinopril 20 MG Tab PO SCH (19:00)
[2024-06-14] MEDS ORDERED: Diltiazem HCl 180 MG Cap.CD PO SCH (21:00)
[2024-06-14] MEDS ORDERED: Atorvastatin 40 MG Tab PO SCH (21:00)
[2024-06-14] MEDS ORDERED: Insulin Glargine-Yfgn 100 Unit/mL 3 ML SYR SC SCH (21:00)
[2024-06-14] MEDS ORDERED: Insulin Human Lispro 100 Units/ML 3ML Syringe SC SCH (21:00)
[2024-06-14] MEDS ORDERED: Sotalol HCl 80 MG Tab PO SCH (21:00)
[2024-06-14 23:26] VITALS: BP 152/87
[2024-06-15 03:57] VITALS: BP 134/89
[2024-06-15 04:40] LABS: BASOPHILS ABSOLUTE AUTO 0.07 K/mm3 (0.00-0.23); BASOPHILS PERCENT AUTO 1 % (0-2); EOSINOPHILS ABSOLUTE AUTO 0.24 K/mm3 (0.00-0.68); EOSINOPHILS PERCENT AUTO 3 % (0-6); Hematocrit 48.9 % (37.0-53.0); Hemoglobin 17.2 g/dL (13.5-17.5); IMMATURE GRAN ABSOLUTE AUTO 0.02 K/mm3 (0.00-0.10); IMMATURE GRAN PERCENT AUTO 0 % (0-1); LYMPHOCYTES PERCENT AUTO 35 % (21-46); MONOCYTES ABSOLUTE AUTO 0.95 K/mm3 (0.16-1.47); MONOCYTES PERCENT AUTO 10 % (4-13); Mean Corpuscular HGB 30.2 pg (26.0-34.0); Mean Corpuscular HGB Conc 35.2 g/dL (31.5-36.5); Mean Corpuscular Volume 86 fL (80-100); Mean Platelet Volume 11.4 fL (9.1-12.4); NEUTROPHILS ABSOLUTE AUTO 4.75 K/mm3 (1.96-9.15); NEUTROPHILS PERCENT AUTO 51 % (41-73); Platelet Count 180 K/mm3 (150-400); RDW Coefficient Variation 12.5 % (11.7-14.2); RDW Standard Deviation 38.8 fL (35.1-46.3); Red Blood Cell Count 5.69 M/mm3 (4.30-5.90); White Blood Cell Count 9.33 K/mm3 (4.00-11.30)
[2024-06-15 05:00] LABS: Albumin, Blood 3.5 g/dL (3.4-5.0); Albumin/Globulin Ratio 1.2 (0.8-1.8); Bilirubin, Total 1.5 mg/dL (0.1-1.0); Bun/Creatinine Ratio 18.9 (12.0-20.0); Calcium, Blood 8.5 mg/dL (8.5-10.1); Creatinine, Blood 1.06 mg/dL (0.60-1.20); Globulin, Blood 2.8 g/dL (2.2-4.0); Magnesium, Blood 2.2 mg/dL (1.6-2.4); Phosphorus, Blood 3.9 mg/dL (2.5-4.9); Potassium, Blood 3.2 mmol/L (3.5-5.5); Total Protein, Blood 6.3 g/dL (6.4-8.2)
[2024-06-15] MEDS ORDERED: Potassium Chloride 20 MEQ TabCR PO SCH (07:00)
[2024-06-15 08:00] VITALS: BP 151/108
[2024-06-15] MEDS ORDERED: Spironolactone 12.5 MG TAB PO SCH (09:00)
[2024-06-15] MEDS ORDERED: Empagliflozin 25 MG TAB PO SCH (09:00)
[2024-06-15] MEDS ORDERED: Aspirin 81 MG TabEC PO SCH (09:00)
[2024-06-15] MEDS ORDERED: HydroCHLOROthiazide 25 mg Tab PO SCH (09:00)
[2024-06-15] MEDS ORDERED: Enoxaparin 40 MG/0.4 ML SYR SC SCH (09:00)
--- NOTE | 2024-06-15 09:26 | NUR ---
0800 ASSUMED CARE OF PT. HE WAS RESTING AT ROUNDS. HE IS IN A FLUTTER RATE CONTROLLED IN THE 80'S. BP ELEVATED. PT NOT COMPLAINING OF PAIN. PT MAEW. PT HAS 1 PIV SL SLIGHT BLOOD RETURN FROM IT. NO NOTED EDEMA. ABD SOFT DISTENDED + BT X 4 QUAD. PPP X 4 QUAD. PT VOIDING IN URINAL T/O DIFFICULTY. GLUCOSE WAS LOW IN 70'S OVER NIGHT AND THIS AM IT IS 109, NO INSULIN GIVEN AT THIS TIME. PT AFEBRILE. WILL CONTINUE TO MONITOR. TX DIRECTED.
--- NOTE | 2024-06-15 09:29 | NUR ---
UPDATE 0920 PT HAVING MULTIPLE 3-6 RUNS OF PVC'S. PT IS FLUSHED AND WARM TO TOUCH. PT STTES HE CAN FEEL HIS PULSE INCREASING. RHYTHM IS NOW AFIB. DR NGUYEN WAS CALLED AND ALSO SPOKE WITH DR ORR. DR NGUYEN CALLING DR BAIRD.
[2024-06-15] MEDS ORDERED: Potassium Chloride 20 MEQ TabCR PO ONE (10:00)
[2024-06-15 12:09] VITALS: BP 134/110
[2024-06-15 16:32] VITALS: BP 153/107
--- NOTE | 2024-06-15 18:02 | NUR ---
End of shift note Patient remains in and out of afib aflutter today. He did received 80meq of potassium befor noon thirty today. He did have short runs of nonsustained vtach of 3-6 beats and rate got up to about 125 at times. He has otherwise been independent in room and to bathroom. He has had stable blood pressures. He remains afebrile. He has had a couple in to see him today one being his twin brother. He was educated on Rate and Rhythm control from medication he was given and how the heart generally works. Also he was educated on potassium replacements along with magnesium replacments and why its important to keep them on the higher end of normal range. His blood sugars have been between 120-170's with medium sliding scale coverage needed only. Dr Posey is reaching out to pts [employer] Machine Operator team to see if they have any other considerations for treatment for Admaa. Pt remains in PCU at this time on telemetry.
[2024-06-15 19:24] VITALS: BP 145/113
[2024-06-16 01:19] VITALS: BP 139/98
[2024-06-16 04:52] LABS: Bun/Creatinine Ratio 18.9 (12.0-20.0); Calcium, Blood 8.7 mg/dL (8.5-10.1); Creatinine, Blood 1.11 mg/dL (0.60-1.20); Potassium, Blood 3.6 mmol/L (3.5-5.5)
[2024-06-16 08:29] VITALS: BP 150/105
--- NOTE | 2024-06-16 08:55 | NUR ---
am note this rn assumed care at 0700 from gloria cooper and did bedside shift report. vital signs stable. tele afluter 120s. patient is alert and oriented x4. neuro is intact. patient is able to make needs known and uses call light appropriately. denies pain, chest pain/pressure or shortness of breath. lung sounds clear. abd soft nontender. skin is clean dry and intact. see shift assessment for further detials.
[2024-06-16] MEDS ORDERED: Potassium Chloride 20 MEQ TabCR PO SCH (09:00)
--- NOTE | 2024-06-16 09:19 | NUR ---
update patient heart rate sustaining in the 140s. this rn spoke with md acosta, retail specialist, and still awaiting to hear back from patients doctor in [place]. md acosta plan to call again and will come in and discuss options with the patient. patient updated.
--- NOTE | 2024-06-16 09:40 | NUR ---
update patient touched 170s and had a 5 beat run of v tach. patient continues to feel flushed, otherwise no change. this rn updated md acosta
[2024-06-16] MEDS ORDERED: Carvedilol 25 MG Tab PO SCH (10:07)
[2024-06-16 11:09] VITALS: BP 143/108
[2024-06-16 17:02] VITALS: BP 137/103
--- NOTE | 2024-06-16 18:05 | NUR ---
shift summary md acosta in to see patient this afternoon and heard back from patient EP doctor in [place], and plan to see patient as an out patient and discuss next steps for oblation and increase betapace starting tonight. vitals remain stabe. tele afib 100s. plan to discharge tomorrow.
[2024-06-16 20:30] VITALS: BP 139/103
[2024-06-16] MEDS ORDERED: Sotalol HCl 80 MG Tab PO SCH (21:00)
[2024-06-16 23:28] VITALS: BP 103/74
[2024-06-17 04:06] VITALS: BP 139/97
[2024-06-17 04:58] LABS: Bun/Creatinine Ratio 21.7 (12.0-20.0); Calcium, Blood 8.7 mg/dL (8.5-10.1); Creatinine, Blood 1.2 mg/dL (0.60-1.20); Magnesium, Blood 2.4 mg/dL (1.6-2.4); Potassium, Blood 3.4 mmol/L (3.5-5.5)
--- NOTE | 2024-06-17 05:15 | NUR ---
SHIFT SUMMARY. SHIFT HAS BEEN UNREMARKABLE. PT AOX4, PLEASANT, COOPERATIVE WITH CARE, ABLE TO MAKE NEEDS KNOWN. HAS BEEN ABLE TO REST COMFORTABLY THROUGHOUT MOST OF SHIFT. VITALS HAVE BEEN STABLE. PT CONTINUES TO RUN AFLUTTER ON TELE WITH RATE MOSTLY SETTLING IN THE 80s-100s RANGE OVERNIGHT WITH SOME MILD TACHYCARDIA WITH AMBULATION THAT QUICKLY SETTLES WHEN PT IS BACK IN BED. OTHERWISE UNREMARKABLE SHIFT. NO PAIN REPORTED. BED LOCKED IN LOWEST POSITION. CALL LIGHT LEFT WITHIN REACH. CONTINUING TO MONITOR.
[2024-06-17] MEDS ORDERED: Potassium Chloride 20 MEQ TabCR PO ONE ×2 (07:00→11:00)
[2024-06-17 08:05] VITALS: BP 129/101
--- NOTE | 2024-06-17 08:36 | NUR ---
am note this rn assumed care at 0700 from lashonda cooper and did bedside shift report. vital signs stable. tele afib 100-110s. spo2 >90% on room air at this time. patient is alert and oriented x4. neuro is intact. patient is able to make needs known and uses call light approoriately. denies pain, chest pain/pressure or shortness of breath. lung sounds celar throughout. patient voids independently with no issues. abd soft nontender and active. skin is clean dry and intact. see shift assessment for further detials. plan of care is up to date at this time
[2024-06-17 11:37] VITALS: BP 117/87
[2024-06-17 15:01] VITALS: BP 127/94
--- NOTE | 2024-06-17 17:44 | NUR ---
update md acosta in the room with heart center nurse trying to override the pacemaker to convert back into sinus and were not successful. md acosta discussing next steps and options
--- NOTE | 2024-06-17 17:48 | NUR ---
shift summary see previous notes. vitals remain stable. neuro remains intact. patient expressed frustration of not being able to get out of aflutter, but otherwise has no complaints or concerns. plan remains up to date. no acute changes this shift.
--- NOTE | 2024-06-17 18:07 | NUR ---
update patient to be npo at midnight for possibly cardioversion tomorrow.
[2024-06-17 20:14] VITALS: BP 143/94
[2024-06-17] MEDS ORDERED: Diltiazem HCl 180 MG Cap.CD PO SCH (21:00)
[2024-06-17 23:55] VITALS: BP 110/78
[2024-06-18 04:01] VITALS: BP 107/87
[2024-06-18 04:28] LABS: Bun/Creatinine Ratio 20.3 (12.0-20.0); Calcium, Blood 8.9 mg/dL (8.5-10.1); Creatinine, Blood 1.28 mg/dL (0.60-1.20); Magnesium, Blood 2.3 mg/dL (1.6-2.4); Potassium, Blood 3.5 mmol/L (3.5-5.5)
--- NOTE | 2024-06-18 06:09 | NUR ---
SHIFT SUMMARY PT HR 90'S-110'S. REMAINS IN AFIB. NO SIGNIFICANT EVENTS. PT HAS BEEN NPO SINCE MIDNIGHT.
[2024-06-18] MEDS ORDERED: NS 250 ML IV SCH (07:00)
[2024-06-18 08:13] VITALS: BP 142/99
--- NOTE | 2024-06-18 09:07 | NUR ---
AM NOTE: PATIENT ALERT AND ORIENTED X4. DENIES NUMBNESS/TINGLING. UP TO BATHROOM IND WITH SBA. GLASSES AT BEDSIDE. TELE SHOWING AFLUTTER WITH HR 90-120'S. DENIES CHEST PAIN/PRESSURE/PALPIATIONS. SBP 140'S. IV SALINE LOCKED. NO SIGNS OF EDEMA. NPO AT THIS TIME PENDING CARDIOLOGY PLAN OF CARE. ON ROOM AIR SATING ABOVE 95%. LUNGS SOUNDS CLEAR. DENIES SOB/COUGH. EVEN AND UNLABORED RESPIRTATIONS. BOWEL TONES PRESENT. NPO. DENIES ISSUES WITH SWALLOWING OR VOIDING. UP TO BATHROOM IND. SKIN C/D/I. DEXCOM TO LEFT TRICEP. PATIENT TALKING ON PERSONAL CELLPHONE THIS AM WITH FAMILY MEMEBERS. DR. LYONS TO BEDSIDE, THIS RN PRESENT. NO NEW ORDERS FOR THIS RN TO PLACE. CALL LIGHT IN REACH. PATIENT DENIES NEEDS AT THIS TIME.
--- NOTE | 2024-06-18 10:50 | NUR ---
DR. EDUARDO AT BEDSIDE, THIS RN PRESENT. PLAN FOR HEART HEALTHY DIET, ORDERS IN PLACE. POSSIBLE DC TODAY.
[2024-06-18 11:05] VITALS: BP 109/96
--- NOTE | 2024-06-18 11:23 | NUR ---
ORDERS FOR EKG FROM DR. EDUARDO. EKG COMPLETED AND REPORTED TO DR. EDUARDO. ORDERS FOR PATIENT TO DISCHARGE ON SOTALOL 80 MG BID, CALL PLACED TO HOSPITALIST DR. JACKY UMANA TO UPDATE. PATIENT UPDATED. EKG IN CHART.
[2024-06-18] MEDS ORDERED: Insulin Regular 100 UNIT/ML 10ML Vial SC SCH (11:30)
[2024-06-18] MEDS ORDERED: DILT180 PO (11:42)
[2024-06-18] MEDS ORDERED: CARV25 PO (11:42)
[2024-06-18] MEDS ORDERED: HYDCHL25 PO (11:42)
[2024-06-18] MEDS ORDERED: ALDACTONE25 MG PO (11:43)
[2024-06-18] MEDS ORDERED: Potassium Chloride 10 Meq Tablet SA PO SCH (12:00)
--- NOTE | 2024-06-18 13:49 | NUR ---
DISCHARGE: NO ACUTE CHANGES, SEE PREVIOUS NOTES. THIS RN REVIEWED EDUCATION WITH PATIENT WHICH INCLUDED NEW MEDICATIONS, DOSAGES, SIGNS AND SYMPTOMS OF WHEN TO RETURN, MEDICATION HOLDING PARAMETERS, FOLLOW UP APPOINTMENTS, AND ALL MEDICATIONS SENT TO [facility]. IV REMOVED WNL. PATIENT TAKEN TO FAMILY WAITING AT PATIENT ENTERANCE VIA WHEELCHAIR, WITH ALL PESRONAL BELONGINGS.
[2024-06-18] MEDS ORDERED: Sotalol HCl 80 MG Tab PO SCH (21:00)
[2024-06-19] MEDS ORDERED: Furosemide 20 MG Tab PO SCH (09:00)
== END 2024-06-18 12:45 | disposition home or self-care (01) | DRG 309 ==
LOC: ER 12:52 → PCU 12:53
PROVIDERS: Emergency Medicine; ADMIT Internal Medicine
DX: I48.0 Paroxysmal atrial fibrillation (principal); I50.22 Chronic systolic (congestive) heart failure; E11.9 Type 2 diabetes mellitus without complications; H54.61 Unqualified visual loss, right eye, normal vision left eye; T46.2X5A Adverse effect of other antidysrhythmic drugs, initial encounter; I11.0 Hypertensive heart disease with heart failure; G47.33 Obstructive sleep apnea (adult) (pediatric); I47.20 Ventricular tachycardia, unspecified; E87.6 Hypokalemia; I48.92 Unspecified atrial flutter; I42.0 Dilated cardiomyopathy; Z79.82 Long term (current) use of aspirin; Z95.0 Presence of cardiac pacemaker; Z79.899 Other long term (current) drug therapy; Z79.4 Long term (current) use of insulin; Z79.84 Long term (current) use of oral hypoglycemic drugs; Z87.891 Personal history of nicotine dependence; Z98.890 Other specified postprocedural states
CPT/HCPCS: 36415; 71046; 80048; 80053; 82947; 83735; 84100; 84439; 84443; 84484; 85025; 93005; 93010; 94762; 96365; 96366; 96372; 96376; 99285-25; A9270; G0378; J1650; J1815

== ENCOUNTER 2024-07-16 09:52 | Emergency (ER) | payer MEDICARE, OTHER ==
[~2024-07-16] VITALS: Ht 188 cm; Wt 106.1 kg
[~2024-07-16 09:52] MED LIST changes: +ALDACTONE25 MG PO; +CARV25 PO; +DILT180 PO; +HUMULIN R500 UNIT/1 SC
[2024-07-16 10:22] LABS: BASOPHILS ABSOLUTE AUTO 0.03 K/mm3 (0.00-0.23); BASOPHILS PERCENT AUTO 0 % (0-2); EOSINOPHILS ABSOLUTE AUTO 0.27 K/mm3 (0.00-0.68); EOSINOPHILS PERCENT AUTO 4 % (0-6); Hematocrit 45.5 % (37.0-53.0); Hemoglobin 15.6 g/dL (13.5-17.5); IMMATURE GRAN ABSOLUTE AUTO 0.02 K/mm3 (0.00-0.10); IMMATURE GRAN PERCENT AUTO 0 % (0-1); LYMPHOCYTES ABSOLUTE AUTO 1.83 K/mm3 (0.84-5.20); LYMPHOCYTES PERCENT AUTO 24 % (21-46); MONOCYTES ABSOLUTE AUTO 0.58 K/mm3 (0.16-1.47); MONOCYTES PERCENT AUTO 8 % (4-13); Mean Corpuscular HGB 29.8 pg (26.0-34.0); Mean Corpuscular HGB Conc 34.3 g/dL (31.5-36.5); Mean Corpuscular Volume 87 fL (80-100); Mean Platelet Volume 10.5 fL (9.1-12.4); NEUTROPHILS ABSOLUTE AUTO 5.01 K/mm3 (1.96-9.15); NEUTROPHILS PERCENT AUTO 65 % (41-73); Platelet Count 191 K/mm3 (150-400); RDW Coefficient Variation 12.8 % (11.7-14.2); RDW Standard Deviation 40.1 fL (35.1-46.3); Red Blood Cell Count 5.24 M/mm3 (4.30-5.90); White Blood Cell Count 7.74 K/mm3 (4.00-11.30)
[2024-07-16 10:42] LABS: Albumin, Blood 3.6 g/dL (3.4-5.0); Albumin/Globulin Ratio 1.1 (0.8-1.8); Bun/Creatinine Ratio 14.1 (12.0-20.0); Calcium, Blood 8.6 mg/dL (8.5-10.1); Creatinine, Blood 0.92 mg/dL (0.60-1.20); Globulin, Blood 3.4 g/dL (2.2-4.0); Potassium, Blood 3.8 mmol/L (3.5-5.5)
[2024-07-16] MEDS ORDERED: Furosemide 10 MG / ML 2ML Vial IV ONE (11:55)
[2024-07-16 12:13] LABS: CORONAVIRUS COVID-19 AG Negative (NEGATIVE); INFLUENZA A AG Negative (NEGATIVE); INFLUENZA B AG Negative (NEGATIVE)
[2024-07-16 13:11] VITALS: BP 167/90
== END 2024-07-16 13:11 | disposition home or self-care (01) ==
LOC: ER 09:52
PROVIDERS: Emergency Medicine; Student in an Organized Health Care Education/Training Program
DX: J81.1 Chronic pulmonary edema (principal); I10 Essential (primary) hypertension; E11.9 Type 2 diabetes mellitus without complications; I48.91 Unspecified atrial fibrillation; Z79.4 Long term (current) use of insulin; Z79.82 Long term (current) use of aspirin; Z79.899 Other long term (current) drug therapy
CPT/HCPCS: 71046; 80053; 83880; 85025; 87428-QW; 93005; 93010; 96374; 99285-25; J1940